=== PATIENT | male | born 1955 ===

== ENCOUNTER → 2017-06-13 | Outpatient (CLI) | payer OTHER | END | disposition home or self-care (01) | LOC: RAD 16:18 | DX: M75.92 Shoulder lesion, unspecified, left shoulder (principal) ==

== ENCOUNTER 2018-07-25 11:28 | Outpatient (CLI) | payer OTHER ==
[2018-07-26] MEDS ORDERED: ALLOPURINOL 300 MG (14:42)
[2018-07-26] MEDS ORDERED: NORVASC5 MG (14:42)
[2018-07-26] MEDS ORDERED: TOPROL XL100 M1 (14:43)
[2018-07-26] MEDS ORDERED: SYNTHROID200 MCG (14:43)
[2018-07-26] MEDS ORDERED: ATIVAN1 M1 (14:43)
[2018-07-26] MEDS ORDERED: DEPAKOTE ER250 MG ×2 (14:43→14:46)
[2018-07-26] MEDS ORDERED: VITAMINA D (14:44)
[2018-07-26] MEDS ORDERED: RISPERDAL3 MG (14:45)
[2018-07-26] MEDS ORDERED: RESTORIL30 MG (14:45)
[2018-07-26] MEDS ORDERED: HUMALOG 50/50 (14:47)
== END 2018-07-25 11:30 | disposition home or self-care (01) ==
LOC: RAD 11:28
DX: M79.672 Pain in left foot (principal)

== ENCOUNTER 2018-07-26 14:31 | Emergency (ER) | payer OTHER ==
[~2018-07-26] VITALS: Ht 172.7 cm; Wt 104.3 kg
[2018-07-26] MEDS ORDERED: NORVASC5 MG (14:42)
[2018-07-26] MEDS ORDERED: ALLOPURINOL 300 MG (14:42)
[2018-07-26] MEDS ORDERED: DEPAKOTE ER250 MG ×2 (14:43→14:46)
[2018-07-26] MEDS ORDERED: SYNTHROID200 MCG (14:43)
[2018-07-26] MEDS ORDERED: TOPROL XL100 M1 (14:43)
[2018-07-26] MEDS ORDERED: ATIVAN1 M1 (14:43)
[2018-07-26] MEDS ORDERED: VITAMINA D (14:44)
[2018-07-26] MEDS ORDERED: RESTORIL30 MG (14:45)
[2018-07-26] MEDS ORDERED: RISPERDAL3 MG (14:45)
[2018-07-26] MEDS ORDERED: HUMALOG 50/50 (14:47)
== END 2018-07-26 15:45 | disposition home or self-care (01) ==
LOC: ER 14:31
DX: M79.672 Pain in left foot (principal)

== ENCOUNTER 2019-05-19 09:41 | Outpatient (CLI) | payer OTHER ==
[~2019-05-19 09:41] MED LIST: ALLOPURINOL 300 MG; ATIVAN1 M1; DEPAKOTE ER250 MG; HUMALOG 50/50; NORVASC5 MG; RESTORIL30 MG; RISPERDAL3 MG; SYNTHROID200 MCG; TOPROL XL100 M1; VITAMINA D
== END 2019-05-19 09:42 | disposition home or self-care (01) ==
LOC: RAD 09:41
DX: H25.011 Cortical age-related cataract, right eye (principal); Z98.41 Cataract extraction status, right eye

== ENCOUNTER → 2020-02-18 13:21 | Outpatient (CLI) | payer OTHER | END | disposition home or self-care (01) | LOC: RAD 13:21 | PROVIDERS: ATTEND Orthopaedic Surgery | DX: M75.32 Calcific tendinitis of left shoulder (principal); M25.512 Pain in left shoulder ==

== ENCOUNTER 2020-03-02 08:06 | Outpatient (CLI) | payer OTHER | END 2020-03-02 08:20 | disposition home or self-care (01) | LOC: SONOGRAMA 08:06 → MAMO-SONO 08:15 → SONOGRAMA 08:20 | PROVIDERS: ATTEND Orthopaedic Surgery | DX: M65.812 Other synovitis and tenosynovitis, left shoulder (principal); M25.512 Pain in left shoulder ==

== ENCOUNTER 2020-10-05 09:48 | Inpatient (IN) | payer OTHER ==
[~2020-10-05] VITALS: Ht 172.7 cm; Wt 134.3 kg
[2020-10-14] MEDS ORDERED: HYDRALAZINE HCL50 MG PO (11:02)
[2020-10-14] MEDS ORDERED: AMLODIPINE BESYL5 MG PO (11:02)
== END 2020-10-14 12:47 | disposition home or self-care (01) | DRG 682 ==
LOC: ER 09:48 → MEDJ 21:47
PROVIDERS: ADMIT Internal Medicine; ATTEND Internal Medicine
PROC: 30233N1 Transfusion of Nonautologous Red Blood Cells into Peripheral Vein, Percutaneous Approach (ICD-10-PCS; principal; 2020-10-05)
PROC: 8E0ZXY6 Isolation (ICD-10-PCS; 2020-10-07)
PROC: 06H033Z Insertion of Infusion Device into Inferior Vena Cava, Percutaneous Approach (ICD-10-PCS; 2020-10-07)
PROC: B549ZZA Ultrasonography of Inferior Vena Cava, Guidance (ICD-10-PCS; 2020-10-07)
PROC: 5A1D70Z Performance of Urinary Filtration, Intermittent, Less than 6 Hours Per Day (ICD-10-PCS; 2020-10-08)
PROC: 02H633Z Insertion of Infusion Device into Right Atrium, Percutaneous Approach (ICD-10-PCS; 2020-10-11)
PROC: 02PY33Z Removal of Infusion Device from Great Vessel, Percutaneous Approach (ICD-10-PCS; 2020-10-11)
DX: I12.0 Hypertensive chronic kidney disease with stage 5 chronic kidney disease or end stage renal disease (principal); N18.6 End stage renal disease; N17.8 Other acute kidney failure; Z16.12 Extended spectrum beta lactamase (ESBL) resistance; N39.0 Urinary tract infection, site not specified; D63.1 Anemia in chronic kidney disease; E11.22 Type 2 diabetes mellitus with diabetic chronic kidney disease; T80.211A Bloodstream infection due to central venous catheter, initial encounter; Z99.2 Dependence on renal dialysis; E03.8 Other specified hypothyroidism; Z20.822 Contact with and (suspected) exposure to COVID-19; Z79.4 Long term (current) use of insulin; E11.65 Type 2 diabetes mellitus with hyperglycemia; B96.1 Klebsiella pneumoniae [K. pneumoniae] as the cause of diseases classified elsewhere; B96.89 Other specified bacterial agents as the cause of diseases classified elsewhere; Y83.8 Other surgical procedures as the cause of abnormal reaction of the patient, or of later complication, without mention of misadventure at the time of the procedure